=== PATIENT | male | born 1970 | race Caucasian/White ===

== ENCOUNTER 2017-02-03 17:40 | Emergency (ER) | payer MEDICAID ==
[~2017-02-03] VITALS: Ht 167.6 cm; Wt 74.8 kg
[~2017-02-03 17:40] MED LIST: ACETAMINOPHEN-H1 TA2 PO; ANXIETY MED OR; AVELOX400 MG PO; AVPAK AZITHROM250 MG PO; BACTRIM DS 8001 TAB PO; BP MED OR; BUTRANS5 MCG/HR TD; CIPRO 500MG TA500 MG PO; CYCLOBENZAPRINE10 M1 OR; DARVOCET-N6 EACH/PAK PO; FLAGYL 500MG.500 MG PO; FLEXERIL10 MG PO; HYDROCODONE1 TABLET PO; KEFLEX500 M1 PO; LORTAB 5/500 501 TAB PO; LORTAB 500 MG-71 TAB PO; MOTRIN 600MG.600 MG PO; NAPROSYN 500MG500 MG PO; NEURONTIN 300M300 MG PO; NOMEDS; NOMEDS XX; PENICILLIN-VK500 MG PO; PEPCID 20MG TAB20 MG PO; PEPCID20 MG OR; PERCOCET 5/3251 EACH PO; TESSALON PERLE100 M1 PO; TRAMADOL 50MG T50 MG PO; VICODIN 5/6 EACH/PAK OR; VICODIN 7.5/501 EACH PO; ZITHROMAX Z PA250 MG PO; ZITHROMAX Z-PA250 M2 PO; ZYRTEC10 MG OR
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
--- OUTSIDE RECORDS SUMMARY | 2017-02-03 19:14 | External Medical Summary Rpt ---
Demographics Preferred Language Malaysian Marital Status Unknown Catholic Affiliation Unknown Race Unknown Ethnic Group Unknown Author Author , Organization [employer] Address Unknown Phone Unavailable Purpose Continuity of Care Document - through 2016
--- OUTSIDE RECORDS SUMMARY | 2017-02-03 19:14 | External Medical Summary Rpt ---
Author Author [employer] Last, JHONY Last Organization [employer] Address Unknown Phone Unavailable
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
--- OUTSIDE RECORDS SUMMARY | 2017-02-03 19:14 | External Medical Summary Rpt ---
Demographics Preferred Language Dutch Marital Status Unknown Anglican Affiliation Unknown Race Unknown Ethnic Group Unknown Author Author , Organization [employer] Address Unknown Phone Unavailable Purpose Continuity of Care Document - through 2016 Immunization No patient found.
--- OUTSIDE RECORDS SUMMARY | 2017-02-03 19:14 | External Medical Summary Rpt ---
Demographics Preferred Language Vincentian Marital Status Unknown Amish Affiliation Unknown Race Unknown Ethnic Group Unknown Author Author , Organization [employer] Address Unknown Phone Unavailable Purpose Continuity of Care Document - through 2016
--- OUTSIDE RECORDS SUMMARY | 2017-02-03 19:14 | External Medical Summary Rpt ---
Demographics Preferred Language Kuwaiti Marital Status Unknown Congregational Affiliation Unknown Race Unknown Ethnic Group Unknown Author Author , Organization [employer] Address Unknown Phone Unavailable Purpose Continuity of Care Document - through 2016 Immunization No patient found.
[2017-02-03 19:57] LABS: HEMOGLOBIN 14.3 g/dL (14.1-18.0); LYMPH # 1.9 K/mm3 (0.7-4.5); LYMPH % 22.6 % (10-50)
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
--- NOTE | 2017-02-04 04:38 | RADIOLOGY REPORT PS360 ---
CHEST(2 VIEWS-NOT PORTABLE) HISTORY: Chest pain following injury FALL ORDERING PHYSICIAN: Basil Beaver MD PATIENT AGE: 46 years COMPARISON: 07/22/2016 FINDINGS: The cardiomediastinal silhouette and pulmonary vascularity are within normal limits. The lungs are clear without infiltrates, suspicious nodules, or pleural effusions. No acute bony abnormalities. There is evidence of old granulomatous disease. Slight increased markings are present in the right suprahilar region likely due to overlapping vessels. Follow-up may confirm. IMPRESSION: No acute finding, please see above for detail
--- NOTE | 2017-02-04 04:40 | RADIOLOGY REPORT PS360 ---
[id number] VIEWS HISTORY: Right rib pain following injury FALL ORDERING PHYSICIAN: Basil Beaver MD PATIENT AGE: 46 years COMPARISON: None FINDINGS: 3 views of the right ribs show no evidence of displaced fracture. If pain persists then, follow-up study in 7-[address] with 3-D reformats may be of further value. IMPRESSION: No acute finding
--- NOTE | 2017-02-04 04:41 | RADIOLOGY REPORT PS360 ---
PELVIS AP ONLY HISTORY: Posttraumatic pain FALL ORDERING PHYSICIAN: Basil Beaver MD PATIENT AGE: 46 years COMPARISON: None FINDINGS: No fracture or dislocation is evident. No significant degenerative change. No lytic or blastic change. The SI joints have an unremarkable appearance. Unremarkable soft tissues. IMPRESSION: Negative pelvis.
--- NOTE | 2017-02-04 05:35 | RADIOLOGY REPORT PS360 ---
CT HEAD W/O CONTRAST HISTORY: Posttraumatic pain, headache, head pain following trauma FALL ORDERING PHYSICIAN: Basil Beaver MD PATIENT AGE: 46 years COMPARISON: 04/05/2013 TECHNIQUE: Axial images obtained without contrast. Brain and bone windows reviewed. FINDINGS: No midline shift, mass effect, intracranial hemorrhage, hydrocephalus, or extra-axial fluid collection is evident. There is mild brain volume loss. There has been a prior right frontoparietal and temporal craniotomy not present on the previous exam. The calvarium has an unremarkable appearance. No mastoid effusion. Mild mucosal thickening of the paranasal sinuses. IMPRESSION: 1. No acute intracranial pathology. 2. Interval craniotomy of the right frontal parietal and temporal region.
--- NOTE | 2017-02-04 05:39 | RADIOLOGY REPORT PS360 ---
CT CERVICAL SPINE W/O CONT INDICATION: Neck pain following injury FALL ORDERING PHYSICIAN: Basil Beaver MD PATIENT AGE: 46 years COMPARISON: 04/05/2013 TECHNIQUE: Axial images are obtained without contrast. Sagittal and coronal reformatted images are reviewed as well. FINDINGS: There is mild reversal cervical lordosis which may be due to patient positioning or muscle spasm. Minimal anterolisthesis C3 on C4 of 3 mm. No prevertebral soft tissue swelling. No acute fracture or dislocation. C2-C3: Unremarkable. C3-C4: Anterolisthesis of C3 with mild endplate and uncovertebral hypertrophic change with bilateral foraminal narrowing C4-C5: Degenerative disc disease with mild bulging disc. C5-C6: Degenerative disc disease with endplate hypertrophic change and right-sided foraminal narrowing with borderline canal stenosis. C6-C7: Degenerative disc disease with borderline canal stenosis. Right foraminal narrowing C7-T1: Mild degenerative disc disease. Bilateral foraminal narrowing Moderate centrilobular and paraseptal emphysematous changes in the lung apices with bullous change. Scattered small lymph nodes are present in the neck. IMPRESSION: 1. No acute fracture. 2. Moderate cervical spondylosis with multilevel degenerative disc disease and facet arthritic change as detailed above IMPRESSION:
[2017-02-04 07:45] VITALS: BP 129/78
[2017-02-15] MEDS ORDERED: IBU800 MG PO (09:37)
== END 2017-02-04 07:46 | disposition home or self-care (01) ==
LOC: ER 17:40
PROVIDERS: Emergency Medicine
DX: S20.211A Contusion of right front wall of thorax, initial encounter (principal); F10.920 Alcohol use, unspecified with intoxication, uncomplicated; Z72.0 Tobacco use; I10 Essential (primary) hypertension; W18.39XA Other fall on same level, initial encounter